=== PATIENT | female | born 1990 | race Caucasian/White ===

== ENCOUNTER 2019-03-18 12:15 | Emergency (ER) | payer MEDICAID, OTHER ==
[~2019-03-18] VITALS: Ht 162.5 cm; Wt 64.3 kg
[2019-03-18 12:45] LABS: CLARITY,URINE CLEAR; COLOR,URINE YELLOW; PH,URINE 6.5 (5-9)
[2019-03-18 12:46] LABS: BACTERIA,URINE NEGATIVE /HPF; BILIRUBIN,URINE NEGATIVE (NEGATIVE); GLUCOSE, URINE (UA) NEGATIVE (NEGATIVE); KETONES,URINE NEGATIVE (NEGATIVE); LEUKOCYTE ESTERASE ,URINE NEGATIVE (NEGATIVE); NITRITE,URINE NEGATIVE (NEGATIVE); PROTEIN,URINE NEGATIVE (NEGATIVE); RBC,URINE RARE /HPF; WBC,URINE 0-2 /HPF
--- NOTE | 2019-03-18 13:07 | ED General ---
General Chief Complaint: [employer] Stated Complaint: ABD CRAMPS,LOWER BACK PAIN - 7 WKS PREG Nursing Triage Note: Patient presents to the ED with c/o back pain and lower abdominal cramping and she is 7 weeks . Reports that the pain started around 4:30 this am and comes and goes but is not very consistent. She denies any vaginal bleeding or spotting. Nursing Sepsis Screen: No Definite Risk Source of Information: Patient History of Present Illness Date Seen by Provider: Mar 18, 2019 Time Seen by Provider: 13:07 Initial Comments 28-year-old female presenting with low pelvic cramping and lower back cramping that has been present off and on since 4:30 this a.m. She states that it comes and goes but feels similar to menstrual cramps. She denies any vaginal bleeding or discharge. She does not have any pain with urination. She denies any fever or chills. She does have nausea with this but has not had any vomiting. She is approximately 7 weeks gestation. She is as far as history. She has an appointment with Dr. Mora coming up this week. She had tried taking Tylenol this morning when she first woke up and had the pain. She was concerned about the and the pain so she came to be evaluated. She did have sexual intercourse approximately 36 hours ago. Allergies and Home Medications Allergies Coded Allergies: No Known Drug Allergies (Unverified , 03/18/19) Home Medications Cyclobenzaprine HCl 10 Mg Tablet, 10 MG PO Q8H PRN for SPASMS Prescribed by: DA ARCHER on 03/18/19 1358 Doxylamine/Pyridoxine HCl 1 Each Tablet., 2 TAB PO HS Prescribed by: DA ARCHER on 03/18/19 1358 Patient Home Medication List Home Medication List Reviewed: Yes Review of Systems Review of Systems Constitutional: No chills, No fever EENTM: no symptoms reported Respiratory: no symptoms reported Cardiovascular: no symptoms reported Gastrointestinal: nausea; No vomiting Genitourinary: No dysuria; other (no vaginal bleeding or discharge) : Yes Musculoskeletal: back pain (low back pain and cramping) Skin: no symptoms reported Psychiatric/Neurological: No Symptoms Reported Past [id number] Hx Past Med/Social Hx: Reviewed Nursing Past Med/Soc Hx Patient Social History Alcohol Use: Denies Use Recreational Drug Use: No Smoking Status: Never a Smoker 2nd Hand Smoke Exposure: No Recent Foreign Travel: No Contact w/Someone Who Travel: No Recent Infectious Disease Expo: No Recent Hopitalizations: No Physical Abuse: No Sexual Abuse: No Mistreated: No Fear: No Seasonal Allergies Seasonal Allergies: No Past Medical History Surgeries: No Respiratory: No Cardiac: No Neurological: No : Yes (7 weeks ) Hx : 3 Hx Para: 2 Genitourinary: No Gastrointestinal: No Musculoskeletal: No Endocrine: No HEENT: No Cancer: No Psychosocial: No Integumentary: No Blood Disorders: No Physical Exam Vital Signs Vital Signs - First Documented 03/18/19 12:35 Temp 36.5 Pulse 85 Resp 18 B/P (MAP) 128/81 (97) Pulse Ox 100 O2 Delivery Room Air Capillary Refill : Less Than 3 Seconds Height, Weight, BMI Height: '" Weight: lbs. oz. kg; 24.00 BMI Method: General Appearance: WD/WN, Anxious HEENT: PERRL/EOMI, Pharynx Normal Respiratory: Chest Non Tender, Lungs Clear, Normal Breath Sounds Cardiovascular: Regular Rate, Rhythm, Normal Peripheral Pulses Gastrointestinal: Normal Bowel Sounds, No Pulsatile Mass, Soft, Tenderness (mild suprapubic tenderness) Back: No CVA Tenderness, No Vertebral Tenderness Extremity: Normal Capillary Refill, Non Tender, No Calf Tenderness, No Pedal Edema Neurologic/Psychiatric: Alert, Oriented x3, No Motor/Sensory Deficits Skin: Normal Color, Warm/Dry Progress/Results/Core Measures Suspected Sepsis Recent Fever Within 48 Hours: No Infection Criteria Present: None New/Unexplained Altered Menta: No Sepsis Screen: No Definite Risk SIRS Temperature: Pulse: 85 Respiratory Rate: 18 Blood Pressure 128 /81 Mean: 97 Results/Orders Lab Results Laboratory Tests Test 03/18/19 12:30 Range/Units Urine Color YELLOW Urine Clarity CLEAR Urine pH 6.5 5-9 Urine Specific [place] 1.015 L 1.016-1.022 Urine Protein NEGATIVE NEGATIVE Urine Glucose (UA) NEGATIVE NEGATIVE Urine Ketones NEGATIVE NEGATIVE Urine Nitrite NEGATIVE NEGATIVE Urine Bilirubin NEGATIVE NEGATIVE Urine Urobilinogen 0.2 < = 1.0 MG/DL Urine Leukocyte Esterase NEGATIVE NEGATIVE Urine RBC (Auto) NEGATIVE NEGATIVE Urine RBC RARE /HPF Urine WBC 0-2 /HPF Urine Squamous Epithelial Cells 2-5 /HPF Urine Crystals NONE /LPF Urine Bacteria NEGATIVE /HPF Urine Casts NONE /LPF Urine Mucus NONE /LPF Urine Culture Indicated NO My Orders Orders - DA ARCHER MD Ua Culture If Indicated (03/18/19 12:21) Vital Signs/I&O Capillary Refill : Less Than 3 Seconds Blood Pressure Mean: 97 POS Progress Note : Progress Note Urinalysis did not demonstrate any signs of infection as well as she had no glucose or protein showing up. Her exam shows mild suprapubic tenderness. Discussed with Dr. Mora over the phone and he advised that she could take Tylenol with Codeine as well as Flexeril if needed for muscle spasms and pain. Encouraged not to have any sexual intercourse until her follow a strict pelvic rest. Continue to drink plenty of fluids and rest. Keep appointment this week with him for follow-up. Departure Impression Primary Impression: Pelvic pain affecting in first trimester, antepartum Disposition: HOME, SELF-CARE Condition: Stable Departure-Patient Inst. Decision time for Depature: 13:50 Referrals: LYNETTE MORA DO (PCP/Family) Primary Care Physician Patient Instructions: Nausea and Vomiting of (DC), Stomach Pain in Early Add. Discharge Instructions: Pelvic rest and no sex or intercourse as this can contribute to uterine contra ction and cramping. Soak in a warm tub to help your back and pelvis relax You may continue with the Acetaminophen 650 mg or 1000 mg every 6 hours as needed for pain. You may also take Flexeril or cyclobenzaprine as a muscle relaxer to help with pain and to help you rest. Check back with Dr. Mora this next week as scheduled. Make sure you are getting plenty of rest and staying well hydrated with drinking water and electrolyte drinks. All discharge instructions reviewed with patient and/or family. Voiced understanding. Scripts Cyclobenzaprine HCl (Cyclobenzaprine HCl) 10 Mg Tablet 10 MG PO Q8H PRN for SPASMS for 5 Days, #15 TAB 0 Refills Prov: DA ARCHER MD 03/18/19 Doxylamine/Pyridoxine HCl (Tomas Madden 10-10 mg Tablet) 1 Each Tablet. 2 TAB PO HS for nausea related for 10 Days, #20 TAB 0 Refills Prov: DA ARCHER MD 03/18/19 DA ARCHER MD Mar 18, 2019 13:07 POS
[2019-03-18] MEDS ORDERED: CYCL10TA9 PO (13:58)
[2019-03-18] MEDS ORDERED: DOXY1TAB3 PO (13:58)
[2019-03-18 14:03] VITALS: BP 128/81
== END 2019-03-18 14:03 | disposition home or self-care (01) ==
LOC: ER FS 12:17
DX: O26.891 Other specified pregnancy related conditions, first trimester (principal); R10.2 Pelvic and perineal pain; Z3A.01 Less than 8 weeks gestation of pregnancy
CPT/HCPCS: 81000; 99282